=== PATIENT | male | born 1975 | race African-American/Black ===

== ENCOUNTER 2016-08-09 23:49 | Emergency (ER) | payer BC ==
[2016-08-10] MEDS ORDERED: IBUPROFEN 400 MG TAB PO STA (00:11)
[2016-08-10] MEDS ORDERED: ACETAMINOPHEN TAB 500 MG TAB PO STA (00:11)
--- NOTE | 2016-08-10 00:34 | XR ---
EXAM: XR Chest, 2 Views CLINICAL HISTORY: Reason: cough TECHNIQUE: Frontal and lateral views of the chest. COMPARISON: 12/17/15 radiographs. FINDINGS: Lungs: Stable. No consolidation. Pleural space: Unremarkable. No pleural effusion or pneumothorax. Heart: Unremarkable. No cardiomegaly. Mediastinum: Unremarkable. Bones/joints: Mild anterior endplate degenerative changes without compression deformity, stable. IMPRESSION: No new acute intrathoracic abnormality is seen to account for the patient's cough.
[2016-08-10] MEDS ORDERED: AMOXIC-POT CLAV 875MG STARTER 2 EACH TABLET PO STA (00:38)
--- NOTE | 2016-08-10 00:38 | ED ---
Fever HPI - General Chief Complaint: Fever Stated Complaint: fever Time Seen by Provider: 08/10/16 00:06 Source: patient, RN notes reviewed Mode of arrival: ambulatory Limitations: no limitations - History of Present Illness Initial Comments: 41-year-old male presents emergency room chief complaint of cough cold runny nose like symptoms. Patient has had these symptoms for the past 3-4 days. Patient states he was started on amoxicillin for tonsillitis by urgent care and . Patient states she's been taking the medications been using Motrin for fever and continues to have sore throat the cough left ear pain and does not seem to be helping him get better. Patient states now is sick at home. Patient states he has no significant health history. Patient states he is concerned because he continues to have the fever and he Continues does not feel well so he thought that he should be evaluated. Patient denies any recent shortness of breath, chest pain, back pain, abdominal pain, nausea vomiting, numbness or tingling, dysuria or hematuria, constipation or diarrhea, headaches or visual changes, or any other current symptoms. - Related Data Home Medications Medication Instructions Recorded Confirmed Ibuprofen [Motrin] 200 - 600 mg PO Q6H PRN 12/17/15 12/17/15 Previous Rx's Medication Instructions Recorded Albuterol Inhaler [Ventolin Hfa 1 - 2 puff INHALATION Q6HR PRN #1 12/17/15 Inhaler] inhaler Azithromycin [Zithromax Z-pack] 250 mg PO DIRECTED #6 tab 12/17/15 Amoxicillin/Potassium Clav 1 tab PO Q12HR #20 tab 08/10/16 [Augmentin 875-125 Tablet] Allergies Allergy/AdvReac Type Severity Reaction Status Date / Time No Known Allergies Allergy Verified 12/17/15 16:14 Review of Systems ROS Statement: Those systems with pertinent positive or pertinent negative responses have been documented in the HPI. ROS Other: All systems not noted in ROS Statement are negative. Past Medical History Past Medical History: Asthma History of Any Multi-Drug Resistant Organisms: None Reported Past Surgical History: No Surgical Hx Reported Past Psychological History: No Psychological Hx Reported Smoking Status: Current every day smoker Past Alcohol Use History: None Reported Past Drug Use History: Marijuana General Exam - General Exam Comments Initial Comments: General exam: Alert, active, comfortable in no apparent distress Head: Normocephalic Eyes: Normal reaction of pupils, equal size, normal range of extraocular motion Ears: normal external ear canals, pink tympanic membranes with normal cone of light to the right, patient does have erythematous left tympanic membrane Nose: clear with pink turbinates Throat: Erythema with mild exudates with normal sized tonsils Neck: no masses, no nuchal rigidity Chest: no chest wall deformity Lungs: equal air entry with no crackles or wheeze CVS: S1 and S2 normal with no audible mumurs, regular rhythm Abdomen: no hepatosplenomegaly, normal bowel sounds, no guarding or rigidity Spine: no scoliosis or deformity Skin: no rashes Neurological: No focal deficits, tone is normal in all 4 extremities Limitations: no limitations Course Vital Signs 08/09/16 23:55 Temperature 102.1 F H Pulse Rate 98 Respiratory 18 Rate Blood Pressure 130/70 O2 Sat by Pulse 96 Oximetry Medical Decision Making - Medical Decision Making 41-year-old male presents with appears to be a tonsillitis with left otitis media. This time patient is on amoxicillin and does not seem to be improving his symptoms. We discussed could be a virus versus it could need a stronger antibiotic. We will switch him to Augmentin. We did discuss follow-up with a discussed return parameters all his questions. He stated they understood and he is negative and the plan. This time the patient will be discharged home. Disposition Clinical Impression: Acute bacterial tonsillitis, Otitis media of left ear Disposition: HOME SELF-CARE Condition: Stable Instructions: Fever in Adults (ED) Additional Instructions: Please use medication as discussed. Please follow up with family doctor if symptoms have not improved over the next two days. Please return to the emergency room if your symptoms increase or worsen or for any other concerns. Prescriptions: Amoxicillin/Potassium Clav [Augmentin 875-125 Tablet] 1 tab PO Q12HR #20 tab Referrals: Dania Campa MD [Primary Care Provider] - 1-2 days Time of Disposition: 00:39
[2016-08-10 01:03] VITALS: BP 114/60; PULSE 79; RESP 20; TEMP 98.7
== END 2016-08-10 01:15 | disposition home or self-care (01) ==
LOC: EC 23:49
DX: J03.80 Acute tonsillitis due to other specified organisms (principal); B96.89 Other specified bacterial agents as the cause of diseases classified elsewhere; H66.92 Otitis media, unspecified, left ear; F17.200 Nicotine dependence, unspecified, uncomplicated
CPT/HCPCS: 71020; 99283

== ENCOUNTER 2016-09-05 09:39 | Emergency (ER) | payer BC ==
--- NOTE | 2016-09-05 10:12 | ED ---
ENT HPI - General Chief complaint: ENT Stated complaint: sore throat Time Seen by Provider: 09/05/16 09:50 Source: patient, RN notes reviewed Mode of arrival: ambulatory Limitations: no limitations - History of Present Illness Initial comments: 41-year-old male presents to the emergency Department chief complaint of sore throat. Patient states he was diagnosed with strep a few weeks ago he was placed on antibiotics. Patient states that his think that the symptoms and now is getting a sore throat again. Patient denies any fever chills or cough. Patient denies any ear pain. Patient states his throat just continues to hurt so he thought that he should be seen. Patient denies any other symptoms at this time. Patient states he is able to drink with this.Patient denies any recent fever, chills, shortness of breath, chest pain, back pain, abdominal pain, nausea vomiting, numbness or tingling, dysuria or hematuria, constipation or diarrhea, headaches or visual changes, or any other current symptoms. - Related Data Home Medications Medication Instructions Recorded Confirmed No Known Home Medications [No 09/05/16 09/05/16 Known Home Medications] Allergies Allergy/AdvReac Type Severity Reaction Status Date / Time No Known Allergies Allergy Verified 09/05/16 09:41 Review of Systems ROS Statement: Those systems with pertinent positive or pertinent negative responses have been documented in the HPI. ROS Other: All systems not noted in ROS Statement are negative. Past Medical History Past Medical History: Asthma History of Any Multi-Drug Resistant Organisms: None Reported Past Surgical History: No Surgical Hx Reported Past Psychological History: No Psychological Hx Reported Smoking Status: Current every day smoker Past Alcohol Use History: None Reported Past Drug Use History: Marijuana General Exam - General Exam Comments Initial Comments: General exam: Alert, active, comfortable in no apparent distress Head: Normocephalic Eyes: Normal reaction of pupils, equal size, normal range of extraocular motion Ears: normal external ear canals, pink tympanic membranes with normal cone of light Nose: clear with pink turbinates Throat: Mild erythema. No exudates Neck: no masses, no nuchal rigidity Chest: no chest wall deformity Lungs: equal air entry with no crackles or wheeze CVS: S1 and S2 normal with no audible mumurs, regular rhythm Abdomen: no hepatosplenomegaly, normal bowel sounds, no guarding or rigidity Spine: no scoliosis or deformity Skin: no rashes Neurological: No focal deficits, tone is normal in all 4 extremities Limitations: no limitations Course Vital Signs 09/05/16 09:41 Temperature 98.6 F Pulse Rate 83 Respiratory 20 Rate Blood Pressure 144/71 O2 Sat by Pulse 97 Oximetry Medical Decision Making - Medical Decision Making 41-year-old male presents emergency Department chief complaint of pharyngitis. This time patient's strep is negative. We did give him a dose of Decadron. We did discuss close follow-up with his doctor return parameters and all questions. Patient stated that he understood and he is in agreement plan. He will be discharged home. - Lab Data Lab Results 09/05/16 Range/Units 10:10 Group A Strep Rapid Negative (Negative) Disposition Clinical Impression: Acute pharyngitis Disposition: HOME SELF-CARE Condition: Stable Instructions: Pharyngitis (ED) Additional Instructions: Please use medication as discussed. Please follow up with family doctor if symptoms have not improved over the next two days. Please return to the emergency room if your symptoms increase or worsen or for any other concerns. Referrals: Dania Campa MD [Primary Care Provider] - 1-2 days Time of Disposition: 10:58
[2016-09-05] MEDS ORDERED: DEXAMETHASONE 4 MG TAB PO STA (10:57)
[2016-09-05 11:14] VITALS: BP 136/67; PULSE 79; RESP 16; TEMP 98.9
== END 2016-09-05 11:14 | disposition home or self-care (01) ==
LOC: EC 09:39
DX: J02.9 Acute pharyngitis, unspecified (principal); F17.200 Nicotine dependence, unspecified, uncomplicated
CPT/HCPCS: 99283; 87081; 87430; J8540

== ENCOUNTER 2016-11-10 21:41 | Emergency (ER) | payer BC ==
[2016-11-10] MEDS ORDERED: IPRATROPIUM-ALBUTEROL 3 ML NEB INHALATION STA (22:14)
--- NOTE | 2016-11-10 22:42 | ED ---
URI HPI - General Chief Complaint: Upper Respiratory Infection Stated Complaint: Cough/CAMMY Time Seen by Provider: 11/10/16 21:57 Source: patient Mode of arrival: ambulatory Limitations: no limitations - History of Present Illness Initial Comments: This patient is 41-year-old man who presents with the complaint that he has had about a day of cough, congestion, and now some chest tightness. 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 He also smokes about one pack per day. The patient denies fever or chills. He does have some chest tightness but denies chest pain when asked about this. He believes he has been having some wheezing when he breathes. Patient denies diaphoresis, abdominal pain, nausea or vomiting, change in urination or bowel movements, leg pain or swelling. MD Complaint: cough, nasal congestion Onset/Timin -: days(s) Consistency: constant Improves With: nothing Worsens With: nothing Associated Symptoms: nasal congestion, cough Treatments Prior to Arrival: none - Related Data Previous Rx's Medication Instructions Recorded Albuterol Inhaler [Ventolin Hfa 1 - 2 puff INHALATION Q6HR PRN #1 11/10/16 Inhaler] inhaler predniSONE 60 mg PO DAILY #30 tab 11/10/16 Allergies Allergy/AdvReac Type Severity Reaction Status Date / Time No Known Allergies Allergy Verified 11/10/16 22:02 Review of Systems ROS Statement: Those systems with pertinent positive or pertinent negative responses have been documented in the HPI. ROS Other: All systems not noted in ROS Statement are negative. Constitutional: Denies: fever, chills, weakness ENT: Reports: congestion Respiratory: Reports: cough, wheezes Cardiovascular: Denies: chest pain, palpitations, orthopnea, edema Gastrointestinal: Denies: abdominal pain, vomiting, diarrhea Genitourinary: Denies: hematuria Musculoskeletal: Denies: back pain Past Medical History Past Medical History: Asthma History of Any Multi-Drug Resistant Organisms: None Reported Past Surgical History: No Surgical Hx Reported Past Psychological History: No Psychological Hx Reported Smoking Status: Current every day smoker Past Alcohol Use History: None Reported Past Drug Use History: Marijuana General Exam Limitations: no limitations General appearance: alert, in no apparent distress, obese Head exam: Present: atraumatic, normocephalic Respiratory exam: Present: wheezes. Absent: respiratory distress, rales, rhonchi, stridor, accessory muscle use, decreased breath sounds, prolonged expiratory Cardiovascular Exam: Present: regular rate, normal rhythm, normal heart sounds. Absent: systolic murmur, diastolic murmur, rubs, gallop Extremities exam: Present: normal inspection, normal capillary refill. Absent: pedal edema, calf tenderness Skin exam: Present: warm, dry, intact, normal color. Absent: rash Course Vital Signs 11/10/16 11/10/16 11/10/16 21:47 22:17 22:23 Temperature 98.2 F Pulse Rate 100 98 Respiratory 20 Rate Blood Pressure 138/77 O2 Sat by Pulse 98 100 Oximetry 11/10/16 22:28 Temperature Pulse Rate 98 Respiratory Rate Blood Pressure O2 Sat by Pulse Oximetry Disposition Clinical Impression: Bronchitis Disposition: HOME SELF-CARE Condition: Good Instructions: Acute Bronchitis (ED) Prescriptions: Albuterol Inhaler [Ventolin Hfa Inhaler] 1 - 2 puff INHALATION Q6HR PRN #1 inhaler PRN Reason: Wheezing predniSONE 60 mg PO DAILY #30 tab Referrals: Dania Campa MD [Primary Care Provider] - 1-2 days
[2016-11-10] MEDS ORDERED: predniSONE 20 MG TAB PO STA (23:48)
--- NOTE | 2016-11-10 23:50 | XR ---
EXAM: XR Chest, 2 Views CLINICAL HISTORY: Reason: cough TECHNIQUE: Frontal and lateral views of the chest. COMPARISON: 08/10/2016. FINDINGS: Lungs: Bibasilar atelectatic changes and/or infiltrates, slightly more conspicuous on this study than the prior. Mild peribronchial cuffing is suggested, slightly more conspicuous on this study than the prior. Finding may represent mild pulmonary edema versus small airways inflammatory disease. Pleural space: Unremarkable. No pneumothorax. Heart: Unremarkable. No cardiomegaly. Mediastinum: Unremarkable. Bones/joints: Unchanged osseous structures. IMPRESSION: 1. Bibasilar atelectatic changes and/or infiltrates, slightly more conspicuous on this study than the prior. 2. Mild peribronchial cuffing is suggested, slightly more conspicuous on this study than the prior. Finding may represent mild pulmonary edema versus small airways inflammatory disease.
[2016-11-11] VITALS: RESP 18
[2016-11-11 00:19] VITALS: BP 121/68; PULSE 80; TEMP 97.8
== END 2016-11-11 00:19 | disposition home or self-care (01) ==
LOC: EC 21:41
DX: J40 Bronchitis, not specified as acute or chronic (principal); R09.81 Nasal congestion; E66.9 Obesity, unspecified; F17.200 Nicotine dependence, unspecified, uncomplicated; Z68.41 Body mass index [BMI] 40.0-44.9, adult
CPT/HCPCS: 99283; 94640; 71020; J7512

== ENCOUNTER 2020-08-26 15:04 | Emergency (ER) | payer BC ==
[2020-08-26 15:28] VITALS: RESP 18
[2020-08-26] MEDS ORDERED: predniSONE 20 MG TAB PO STA (17:10)
[2020-08-26] MEDS ORDERED: SODIUM CHLORIDE 0.9% 500 ML 500 ML IV STA (17:10)
[2020-08-26] MEDS ORDERED: IPRATROPIUM-ALBUTEROL 3 ML NEB INHALATION STA (17:10)
--- NOTE | 2020-08-26 17:16 | ED ---
SOB HPI - General Chief Complaint: Shortness of Breath Stated Complaint: SOB, cough Source: patient, RN notes reviewed, old records reviewed Mode of arrival: ambulatory Limitations: no limitations - History of Present Illness Initial Comments: 45-year-old obese black male, alert and oriented 4, presents to the emergency room with 3 weeks of intermittent cough and shortness of breath with chest tightness. Patient states he was seen at [facility] 3 weeks ago and given a Z-Jimmy had chest x-ray and EKG done that was all normal. Patient states that he does have a history of asthma but does not take any medication. Patient is a pack-a-day smoker. He denies any patient's on a daily basis no surgical history. Patient states that he does take Adderall to help him at work but it is not prescribed to him. Patient denies any fevers. There is no family history of sudden cardiac or heart disease at an early age. There is no diabetes in the family. Patient denies fevers states that he has been wheezing and did get relief after the Z-Jimmy but then the shortness of breath came back. Patient's primary care doctor is Dr. Treviño however he is looking for a new [facility] care doctor. MD Complaint: shortness of breath, cough, chest pain -: week(s) (3) Quality: other (Tightness) Consistency: intermittent Improves With: nothing Worsens With: coughing Known History Of: other (Bronchitis) Associated Symptoms: cough Treatments Prior to Arrival: none - Related Data Home Oxygen Therapy: No Previous Rx's Medication Instructions Recorded Albuterol Inhaler (Mhu) [Ventolin 1 - 2 puff INHALATION Q6HR PRN #1 11/10/16 Hfa Inhaler (Mhu)] inhaler predniSONE 60 mg PO DAILY #30 tab 11/10/16 Albuterol Inhaler [Ventolin Hfa 2 puff INHALATION ONCE PRN 30 Days 08/26/20 Inhaler] #1 puff Albuterol Nebulized [Ventolin 2.5 mg INHALATION Q4H PRN #25 nebu 08/26/20 Nebulized] predniSONE 50 mg PO DAILY #5 tab 08/26/20 Allergies Allergy/AdvReac Type Severity Reaction Status Date / Time No Known Allergies Allergy Verified 08/26/20 15:28 Review of Systems ROS Statement: Those systems with pertinent positive or pertinent negative responses have been documented in the HPI. ROS Other: All systems not noted in ROS Statement are negative. Past Medical History Past Medical History: Asthma History of Any Multi-Drug Resistant Organisms: None Reported Past Surgical History: No Surgical Hx Reported Past Psychological History: No Psychological Hx Reported Smoking Status: Current every day smoker Past Alcohol Use History: None Reported Past Drug Use History: Marijuana General Exam Limitations: no limitations General appearance: alert, in no apparent distress Head exam: Present: atraumatic, normocephalic, normal inspection Eye exam: Present: normal appearance, PERRL, EOMI. Absent: scleral icterus, conjunctival injection, periorbital swelling Pupils: Present: normal accommodation ENT exam: Present: normal exam, normal oropharynx, mucous membranes moist Neck exam: Present: normal inspection, full ROM. Absent: tenderness, meningismus, lymphadenopathy Respiratory exam: Present: wheezes. Absent: rhonchi, stridor, chest wall tenderness, accessory muscle use, decreased breath sounds Cardiovascular Exam: Present: regular rate, normal rhythm, normal heart sounds. Absent: systolic murmur, diastolic murmur, rubs, gallop, clicks GI/Abdominal exam: Present: soft, normal bowel sounds. Absent: distended, tenderness, guarding, rebound, rigid Extremities exam: Present: normal inspection, full ROM, normal capillary refill. Absent: tenderness, pedal edema, joint swelling, calf tenderness Back exam: Present: normal inspection, full ROM. Absent: tenderness, CVA tenderness (R), CVA tenderness (L), muscle spasm, paraspinal tenderness, vertebral tenderness Neurological exam: Present: alert, oriented X3, CN II-XII intact, normal gait Psychiatric exam: Present: normal affect, normal mood Skin exam: Present: warm, dry, intact, normal color. Absent: rash Course Vital Signs 08/26/20 08/26/20 08/26/20 15:24 17:43 17:45 Temperature 98.0 F Pulse Rate 79 84 Pulse Rate [ 81 Occupational Therapy Technician ] Respiratory 18 18 20 Rate Blood Pressure 166/96 O2 Sat by Pulse 98 Oximetry 08/26/20 17:50 Temperature Pulse Rate 85 Pulse Rate [ Occupational Therapy Technician ] Respiratory 18 Rate Blood Pressure O2 Sat by Pulse Oximetry Medical Decision Making - Medical Decision Making Heart score 1. EKG with no signs of ST elevation. Chest x-ray is negative for acute cardiopulmonary process. Troponin is negative at 0.012, there is no leukocytosis and hemoglobin and hematocrit is stable at 14 and 44 respectively. Patient will be prescribed prednisone for his asthma and an albuterol inhaler. Directed to follow up with his primary care doctor in 1 week, return to the emergency room with worsening symptoms chest pain or fevers. Case discussed with Dr. Espinal who is agreeable to this plan of care - Lab Data Result diagrams: 08/26/20 17:31 08/26/20 17:31 Lab Results 08/26/20 08/26/20 08/26/20 Range/Units 17:31 17:31 17:31 WBC 5.7 (3.8-10.6) k/uL RBC 5.03 (4.30-5.90) m/uL Hgb 14.4 (13.0-17.5) gm/dL Hct 44.4 (39.0-53.0) % MCV 88.3 (80.0-100.0) fL MCH 28.6 (25.0-35.0) pg MCHC 32.4 (31.0-37.0) g/dL RDW 14.6 (11.5-15.5) % Plt Count 265 (150-450) k/uL MPV 6.7 Neutrophils % 58 % Lymphocytes % 27 % Monocytes % 5 % Eosinophils % 8 % Basophils % 1 % Neutrophils # 3.3 (1.3-7.7) k/uL Lymphocytes # 1.5 (1.0-4.8) k/uL Monocytes # 0.3 (0-1.0) k/uL Eosinophils # 0.4 (0-0.7) k/uL Basophils # 0.0 (0-0.2) k/uL PT 9.5 (9.0-12.0) sec INR 0.9 (<1.2) APTT 23.4 (22.0-30.0) sec Sodium 142 (137-145) mmol/L Potassium 4.5 (3.5-5.1) mmol/L Chloride 109 H (98-107) mmol/L Carbon Dioxide 28 (22-30) mmol/L Anion Gap 5 mmol/L BUN 16 (9-20) mg/dL Creatinine 0.73 (0.66-1.25) mg/dL Est GFR (CKD-EPI)AfAm >90 (>60 ml/min/1.73 sqM) Est GFR (CKD-EPI)NonAf >90 (>60 ml/min/1.73 sqM) Glucose 87 (74-99) mg/dL Calcium 9.1 (8.4-10.2) mg/dL Magnesium 2.1 (1.6-2.3) mg/dL Total Bilirubin 0.5 (0.2-1.3) mg/dL AST 37 (17-59) U/L ALT 40 (4-49) U/L Alkaline Phosphatase 80 (38-126) U/L Troponin I (0.000-0.034) ng/mL Total Protein 7.0 (6.3-8.2) g/dL Albumin 4.0 (3.5-5.0) g/dL 08/26/20 Range/Units 17:31 WBC (3.8-10.6) k/uL RBC (4.30-5.90) m/uL Hgb (13.0-17.5) gm/dL Hct (39.0-53.0) % MCV (80.0-100.0) fL MCH (25.0-35.0) pg MCHC (31.0-37.0) g/dL RDW (11.5-15.5) % Plt Count (150-450) k/uL MPV Neutrophils % % Lymphocytes % % Monocytes % % Eosinophils % % Basophils % % Neutrophils # (1.3-7.7) k/uL Lymphocytes # (1.0-4.8) k/uL Monocytes # (0-1.0) k/uL Eosinophils # (0-0.7) k/uL Basophils # (0-0.2) k/uL PT (9.0-12.0) sec INR (<1.2) APTT (22.0-30.0) sec Sodium (137-145) mmol/L Potassium (3.5-5.1) mmol/L Chloride (98-107) mmol/L Carbon Dioxide (22-30) mmol/L Anion Gap mmol/L BUN (9-20) mg/dL Creatinine (0.66-1.25) mg/dL Est GFR (CKD-EPI)AfAm (>60 ml/min/1.73 sqM) Est GFR (CKD-EPI)NonAf (>60 ml/min/1.73 sqM) Glucose (74-99) mg/dL Calcium (8.4-10.2) mg/dL Magnesium (1.6-2.3) mg/dL Total Bilirubin (0.2-1.3) mg/dL AST (17-59) U/L ALT (4-49) U/L Alkaline Phosphatase (38-126) U/L Troponin I <0.012 (0.000-0.034) ng/mL Total Protein (6.3-8.2) g/dL Albumin (3.5-5.0) g/dL - EKG Data EKG shows normal: sinus rhythm, intervals (Ventricular rate of 74, IN interval 0.118, QRS of 0.88, QTC of 0.419) EKG Comments: No old EKG for comparison. Disposition Clinical Impression: Asthma attack Disposition: HOME SELF-CARE Condition: Good Instructions (If sedation given, give patient instructions): Asthma (ED) Additional Instructions: Take medication as prescribed, uvula injure albuterol inhaler every 4 hours as needed. Follow-up with Dr. Glass for a primary care physician and Dr. Santoro a route clerk to manage asthma. Return to the emergency room with incr easing shortness of breath or chest pain. Stop smoking. Prescriptions: predniSONE 50 mg PO DAILY #5 tab Albuterol Inhaler [Ventolin Hfa Inhaler] 2 puff INHALATION ONCE PRN 30 Days #1 puff PRN Reason: Wheezing Albuterol Nebulized [Ventolin Nebulized] 2.5 mg INHALATION Q4H PRN #25 nebu PRN Reason: difficulty in breathing Is patient prescribed a controlled substance at d/c from ED?: No Referrals: Dania Campa MD [Primary Care Provider] - 1-2 days Chino Glass MD [STAFF PHYSICIAN] - 1-2 days Glen Santoro MD [STAFF PHYSICIAN] - 1-2 days Time of Disposition: 18:55
[2020-08-26 17:54] LABS: Basophils % (A) 1 %; Eosinophils # (A) 0.4 k/uL (0-0.7); Eosinophils % (A) 8 %; HCT 44.4 % (39.0-53.0); HGB 14.4 gm/dL (13.0-17.5); Lymphocytes # (A) 1.5 k/uL (1.0-4.8); Lymphocytes % (A) 27 %; MCH 28.6 pg (25.0-35.0); MCHC 32.4 g/dL (31.0-37.0); MCV 88.3 fL (80.0-100.0); Mean Platelet Volume 6.7; Monocytes # (A) 0.3 k/uL (0-1.0); Monocytes % (A) 5 %; Neutrophils # (A) 3.3 k/uL (1.3-7.7); Neutrophils % (A) 58 %; Platelet Count 265 k/uL (150-450); RBC 5.03 m/uL (4.30-5.90); RDW 14.6 % (11.5-15.5); WBC 5.7 k/uL (3.8-10.6)
[2020-08-26 18:03] LABS: INR 0.9 (<1.2); Partial Thromboplastin Time 23.4 sec (22.0-30.0); Prothrombin Time 9.5 sec (9.0-12.0)
[2020-08-26 18:15] LABS: ALT 40 U/L (4-49); AST 37 U/L (17-59); African American GFR (CKD) >90 (>60 ml/min/1.73 sqM); Alkaline Phosphatase 80 U/L (38-126); Anion Gap 5 mmol/L; Blood Urea Nitrogen 16 mg/dL (9-20); Calcium 9.1 mg/dL (8.4-10.2); Carbon Dioxide 28 mmol/L (22-30); Chloride 109 mmol/L (98-107); Glucose 87 mg/dL (74-99); Magnesium 2.1 mg/dL (1.6-2.3); Non-African American GFR(CKD) >90 (>60 ml/min/1.73 sqM); Potassium 4.5 mmol/L (3.5-5.1); Sodium 142 mmol/L (137-145); Total Bilirubin 0.5 mg/dL (0.2-1.3)
--- NOTE | 2020-08-26 18:19 | XR ---
EXAMINATION TYPE: XR chest 2V DATE OF EXAM: 08/26/2020 COMPARISON: 11/10/2016 HISTORY: Short of breath TECHNIQUE: FINDINGS: Heart and mediastinum are normal. Lungs are clear. Diaphragm is normal. Bony thorax appears normal. IMPRESSION: Normal chest. No change.
[2020-08-26 19:19] VITALS: BP 158/89; PULSE 72; TEMP 98.7
== END 2020-08-26 19:17 | disposition home or self-care (01) ==
LOC: EC 15:04
DX: J45.901 Unspecified asthma with (acute) exacerbation (principal); F12.90 Cannabis use, unspecified, uncomplicated; F17.210 Nicotine dependence, cigarettes, uncomplicated; Z79.51 Long term (current) use of inhaled steroids
CPT/HCPCS: 36415; 94640; 93005; 80053; 83735; 84484; 85025; 85610; 85730; 71046; 99285; J7512

== ENCOUNTER 2020-10-30 18:38 | Emergency (ER) | payer BC ==
[2020-10-30] MEDS ORDERED: KETOROLAC 15 MG/ML 1 ML VIAL IM STA (19:26)
[2020-10-30] MEDS ORDERED: predniSONE 50 MG TAB PO STA (19:26)
--- NOTE | 2020-10-30 19:28 | ED ---
Back Pain HPI - General Chief Complaint: Back Pain/Injury Stated Complaint: Back Pain Time Seen by Provider: 10/30/20 19:16 Source: patient Limitations: no limitations - History of Present Illness Initial Comments: Is a 45-year-old male with a long-standing history of left-sided sciatic nerve pain. The patient states he started a new job today and he states that his sciatica started flaring up on him. He states he has pain in his left lower back that radiates down the back of his leg area states he has a little bit [place] sensation however no numbness. Denies any weakness in the leg. Denies any bowel or bladder incontinence. No saddle anesthesia. States that it feels similar to his had flareups in the past and is requesting steroids and pain control. He states he follows with Dr. Treviño regarding his pain typically and gets [place] 53 25's. The patient otherwise denies any injuries. No other complaints. - Related Data Previous Rx's Medication Instructions Recorded Albuterol Inhaler (Mhu) [Ventolin 1 - 2 puff INHALATION Q6HR PRN #1 11/10/16 Hfa Inhaler (Mhu)] inhaler predniSONE 60 mg PO DAILY #30 tab 11/10/16 Albuterol Inhaler [Ventolin Hfa 2 puff INHALATION ONCE PRN 30 Days 08/26/20 Inhaler] #1 puff Albuterol Nebulized [Ventolin 2.5 mg INHALATION Q4H PRN #25 nebu 08/26/20 Nebulized] predniSONE 50 mg PO DAILY #5 tab 08/26/20 HYDROcodone/APAP 5-325MG [[place] 1 tab PO Q6HR PRN 3 Days #6 tab 10/30/20 5-325] predniSONE 50 mg PO DAILY #4 tab 10/30/20 Allergies Allergy/AdvReac Type Severity Reaction Status Date / Time No Known Allergies Allergy Verified 10/30/20 19:14 Review of Systems ROS Statement: Those systems with pertinent positive or pertinent negative responses have been documented in the HPI. ROS Other: All systems not noted in ROS Statement are negative. Past Medical History Past Medical History: Asthma History of Any Multi-Drug Resistant Organisms: None Reported Past Surgical History: No Surgical Hx Reported Past Psychological History: No Psychological Hx Reported Smoking Status: Current every day smoker Past Alcohol Use History: None Reported Past Drug Use History: Marijuana General Exam - General Exam Comments Initial Comments: Constitutional: Awake alert Appears comfortable Head: Normocephalic atraumatic Eyes: no conjunctival injection No scleral icterus EOMI Neck: No JVD Supple Heart: Regular rate rhythm normal S1-S2 no murmurs Lungs: Clear to auscultation bilaterally No wheezing No rales Abdomen: Soft nondistended nontender Extremities: Non edematous DP pulses intact Radial pulses intact, tenderness to palpation the left paraspinal lumbar musculature Neuro: A&Ox3, 5 out of 5 strength with hip flexion bilaterally, knee flexion and extension, plantar flexion and dorsiflexion, 2 out of 4 patellar reflexes, sensation intact to light touch in bilateral lower [place] No focal neurologic deficits Psych: Appropriate mood and affect Limitations: no limitations Course Vital Signs 10/30/20 19:12 Temperature 98.1 F Pulse Rate 91 Respiratory 16 Rate Blood Pressure 112/68 O2 Sat by Pulse 96 Oximetry Medical Decision Making - Medical Decision Making Is a 45-year-old male presents emergency department for sciatic nerve pain. The patient did not have any red flag symptoms on examination. No focal neurologic findings. His symptoms were consistent with his history of sciatica in the past. The patient was requesting pain control. Given Toradol and a dose of prednisone in the emergency department. He can be sent home with prednisone for 4 more days and also I gave him 6 [place] for breakthrough pain. The patient states that he has not tolerated muscle relaxers in the past and states that she has been trying to take ibuprofen at home without much relief area told that he can return if he developed any weakness, numbness, [place], or any other worsening symptoms. The patient was also given a work note for today and follow up with Dr. Treviño as well. All questions answered. Disposition Clinical Impression: Sciatica Disposition: HOME SELF-CARE Condition: Stable Instructions (If sedation given, give patient instructions): Acute Low Back Pain (ED) Prescriptions: HYDROcodone/APAP 5-325MG [[place] 5-325] 1 tab PO Q6HR PRN 3 Days #6 tab PRN Reason: Pain predniSONE 50 mg PO DAILY #4 tab Is patient prescribed a controlled substance at d/c from ED?: Yes When asked, does pt state using other controlled substances?: No If prescribed controlled substance>3 days was MAPS reviewed?: Prescribed <3 Days If opioid is for acute pain is fill amount 7 days or less?: Yes If Rx opioid, was Start Talking consent form obtained?: Yes Referrals: Domenic Treviño MD [Primary Care Provider] - 1-2 days
[2020-10-30 19:50] VITALS: BP 142/86; PULSE 18; RESP 86; TEMP 97.6
== END 2020-10-30 19:45 | disposition home or self-care (01) ==
LOC: EC 18:38
DX: M54.42 Lumbago with sciatica, left side (principal); J45.909 Unspecified asthma, uncomplicated; F17.200 Nicotine dependence, unspecified, uncomplicated; F12.90 Cannabis use, unspecified, uncomplicated; Z79.52 Long term (current) use of systemic steroids; Z79.51 Long term (current) use of inhaled steroids
CPT/HCPCS: 96372; 99283; J1885; J7512

== ENCOUNTER 2020-12-13 07:26 | Emergency (ER) | payer BC, OTHER ==
[2020-12-13] MEDS ORDERED: IPRATROPIUM-ALBUTEROL 3 ML NEB INHALATION STA (07:43)
[2020-12-13] MEDS ORDERED: methylPREDNISolone SOD SUCCI 125 MG/2 ML VIAL IV STA (07:43)
[2020-12-13] MEDS ORDERED: SODIUM CHLORIDE 0.9% 500 ML 500 ML IV STA (07:43)
[2020-12-13 08:14] LABS: Basophils % (A) 1 %; Eosinophils # (A) 0.6 k/uL (0-0.7); Eosinophils % (A) 9 %; HCT 44.4 % (39.0-53.0); HGB 14.4 gm/dL (13.0-17.5); Lymphocytes % (A) 16 %; MCH 29.1 pg (25.0-35.0); MCHC 32.5 g/dL (31.0-37.0); MCV 89.5 fL (80.0-100.0); Mean Platelet Volume 6.8; Monocytes # (A) 0.4 k/uL (0-1.0); Monocytes % (A) 7 %; Neutrophils # (A) 4.1 k/uL (1.3-7.7); Neutrophils % (A) 66 %; Platelet Count 280 k/uL (150-450); RBC 4.96 m/uL (4.30-5.90); RDW 13.3 % (11.5-15.5); WBC 6.2 k/uL (3.8-10.6)
[2020-12-13 08:20] VITALS: RESP 18
[2020-12-13 08:22] LABS: INR 0.9 (<1.2); Partial Thromboplastin Time 23.8 sec (22.0-30.0); Prothrombin Time 9.6 sec (9.0-12.0)
[2020-12-13 08:23] LABS: ALT 38 U/L (4-49); AST 35 U/L (17-59); African American GFR (CKD) >90 (>60 ml/min/1.73 sqM); Albumin 3.8 g/dL (3.5-5.0); Alkaline Phosphatase 83 U/L (38-126); Anion Gap 8 mmol/L; Blood Urea Nitrogen 16 mg/dL (9-20); Calcium 8.8 mg/dL (8.4-10.2); Carbon Dioxide 23 mmol/L (22-30); Chloride 107 mmol/L (98-107); Glucose 106 mg/dL (74-99); Non-African American GFR(CKD) 81 (>60 ml/min/1.73 sqM); Potassium 3.9 mmol/L (3.5-5.1); Sodium 138 mmol/L (137-145); Total Bilirubin 0.5 mg/dL (0.2-1.3); Total Protein 6.8 g/dL (6.3-8.2)
--- NOTE | 2020-12-13 08:30 | XR ---
EXAMINATION TYPE: XR chest 2V DATE OF EXAM: 12/13/2020 COMPARISON: NONE TECHNIQUE: PA and lateral views submitted. HISTORY: Cough FINDINGS: The lungs are clear and there is no pneumothorax, pleural effusion, or focal pneumonia. Heart size normal. No overt failure. Hypertrophic and degenerative changes of the spine. IMPRESSION: 1. No acute process.
--- NOTE | 2020-12-13 09:16 | ED ---
SOB HPI - General Chief Complaint: Shortness of Breath Stated Complaint: CAMMY Time Seen by Provider: 12/13/20 07:31 Source: patient, RN notes reviewed Mode of arrival: ambulatory Limitations: no limitations - History of Present Illness Initial Comments: This a 45-year-old male presents emergency Department with chief complaint of shortness of breath. Patient states that he was recently diagnosed with asthma states that been having increasing shortness of urinating. No fevers chills no chest pain states he only has an inhaler at home tried this a few times. Patient has mild nasal congestion no headache no dizziness no abdominal pain. - Related Data Previous Rx's Medication Instructions Recorded Albuterol Inhaler (Mhu) [Ventolin 1 - 2 puff INHALATION Q6HR PRN #1 11/10/16 Hfa Inhaler (Mhu)] inhaler predniSONE 60 mg PO DAILY #30 tab 11/10/16 Albuterol Inhaler [Ventolin Hfa 2 puff INHALATION ONCE PRN 30 Days 08/26/20 Inhaler] #1 puff Albuterol Nebulized [Ventolin 2.5 mg INHALATION Q4H PRN #25 nebu 08/26/20 Nebulized] predniSONE 50 mg PO DAILY #5 tab 08/26/20 HYDROcodone/APAP 5-325MG [[place] 1 tab PO Q6HR PRN 3 Days #6 tab 10/30/20 5-325] predniSONE 50 mg PO DAILY #4 tab 10/30/20 predniSONE 50 mg PO DAILY #5 tab 12/13/20 Allergies Allergy/AdvReac Type Severity Reaction Status Date / Time No Known Allergies Allergy Verified 12/13/20 07:29 Review of Systems ROS Statement: Those systems with pertinent positive or pertinent negative responses have been documented in the HPI. ROS Other: All systems not noted in ROS Statement are negative. Past Medical History Past Medical History: Asthma History of Any Multi-Drug Resistant Organisms: None Reported Past Surgical History: No Surgical Hx Reported Past Psychological History: No Psychological Hx Reported Smoking Status: Current every day smoker Past Alcohol Use History: None Reported Past Drug Use History: Marijuana General Exam Limitations: no limitations General appearance: alert, in no apparent distress Head exam: Present: atraumatic, normocephalic, normal inspection Eye exam: Present: normal appearance, PERRL, EOMI. Absent: scleral icterus, conjunctival injection, periorbital swelling ENT exam: Present: normal exam, normal oropharynx, mucous membranes moist Neck exam: Present: normal inspection, full ROM. Absent: tenderness, meningismus, lymphadenopathy Respiratory exam: Present: wheezes. Absent: normal lung sounds bilaterally, respiratory distress, rales, rhonchi, stridor Cardiovascular Exam: Present: regular rate, normal rhythm, normal heart sounds. Absent: systolic murmur, diastolic murmur, rubs, gallop, clicks Course Vital Signs 12/13/20 12/13/20 12/13/20 07:27 08:18 08:30 Temperature 98.5 F Pulse Rate 94 86 94 Respiratory 24 18 18 Rate Blood Pressure 148/79 O2 Sat by Pulse 95 Oximetry Medical Decision Making - Medical Decision Making X-rays negative, COVID-19 his negative labs unremarkable. Patient did have diffuse wheezing improved after albuterol treatment. Patient be discharged in stable condition return parameters were discussed. - Lab Data Result diagrams: 12/13/20 07:53 12/13/20 07:53 Lab Results 12/13/20 12/13/20 12/13/20 Range/Units 07:53 07:53 07:53 WBC 6.2 (3.8-10.6) k/uL RBC 4.96 (4.30-5.90) m/uL Hgb 14.4 (13.0-17.5) gm/dL Hct 44.4 (39.0-53.0) % MCV 89.5 (80.0-100.0) fL MCH 29.1 (25.0-35.0) pg MCHC 32.5 (31.0-37.0) g/dL RDW 13.3 (11.5-15.5) % Plt Count 280 (150-450) k/uL MPV 6.8 Neutrophils % 66 % Lymphocytes % 16 % Monocytes % 7 % Eosinophils % 9 % Basophils % 1 % Neutrophils # 4.1 (1.3-7.7) k/uL Lymphocytes # 1.0 (1.0-4.8) k/uL Monocytes # 0.4 (0-1.0) k/uL Eosinophils # 0.6 (0-0.7) k/uL Basophils # 0.0 (0-0.2) k/uL PT 9.6 (9.0-12.0) sec INR 0.9 (<1.2) APTT 23.8 (22.0-30.0) sec Sodium 138 (137-145) mmol/L Potassium 3.9 (3.5-5.1) mmol/L Chloride 107 (98-107) mmol/L Carbon Dioxide 23 (22-30) mmol/L Anion Gap 8 mmol/L BUN 16 (9-20) mg/dL Creatinine 1.10 (0.66-1.25) mg/dL Est GFR (CKD-EPI)AfAm >90 (>60 ml/min/1.73 sqM) Est GFR (CKD-EPI)NonAf 81 (>60 ml/min/1.73 sqM) Glucose 106 H (74-99) mg/dL Calcium 8.8 (8.4-10.2) mg/dL Total Bilirubin 0.5 (0.2-1.3) mg/dL AST 35 (17-59) U/L ALT 38 (4-49) U/L Alkaline Phosphatase 83 (38-126) U/L NT-Pro-B Natriuret Pep pg/mL Total Protein 6.8 (6.3-8.2) g/dL Albumin 3.8 (3.5-5.0) g/dL Coronavirus (PCR) (Not Detectd) 12/13/20 12/13/20 Range/Units 07:53 07:53 WBC (3.8-10.6) k/uL RBC (4.30-5.90) m/uL Hgb (13.0-17.5) gm/dL Hct (39.0-53.0) % MCV (80.0-100.0) fL MCH (25.0-35.0) pg MCHC (31.0-37.0) g/dL RDW (11.5-15.5) % Plt Count (150-450) k/uL MPV Neutrophils % % Lymphocytes % % Monocytes % % Eosinophils % % Basophils % % Neutrophils # (1.3-7.7) k/uL Lymphocytes # (1.0-4.8) k/uL Monocytes # (0-1.0) k/uL Eosinophils # (0-0.7) k/uL Basophils # (0-0.2) k/uL PT (9.0-12.0) sec INR (<1.2) APTT (22.0-30.0) sec Sodium (137-145) mmol/L Potassium (3.5-5.1) mmol/L Chloride (98-107) mmol/L Carbon Dioxide (22-30) mmol/L Anion Gap mmol/L BUN (9-20) mg/dL Creatinine (0.66-1.25) mg/dL Est GFR (CKD-EPI)AfAm (>60 ml/min/1.73 sqM) Est GFR (CKD-EPI)NonAf (>60 ml/min/1.73 sqM) Glucose (74-99) mg/dL Calcium (8.4-10.2) mg/dL Total Bilirubin (0.2-1.3) mg/dL AST (17-59) U/L ALT (4-49) U/L Alkaline Phosphatase (38-126) U/L NT-Pro-B Natriuret Pep 22 pg/mL Total Protein (6.3-8.2) g/dL Albumin (3.5-5.0) g/dL Coronavirus (PCR) Not Detected (Not Detectd) Disposition Clinical Impression: Asthma exacerbation Disposition: HOME SELF-CARE Condition: Stable Instructions (If sedation given, give patient instructions): Asthma (ED) Additional Instructions: Please return to the Emergency Department if symptoms worsen or any other concerns. Prescriptions: predniSONE 50 mg PO DAILY #5 tab Is patient prescribed a controlled substance at d/c from ED?: No Referrals: Domenic Treviño MD [Primary Care Provider] - 1-2 days Time of Disposition: 09:15
[2020-12-13 09:52] VITALS: BP 124/92; PULSE 86; TEMP 98.6
== END 2020-12-13 09:52 | disposition home or self-care (01) ==
LOC: EC 07:26
DX: J45.901 Unspecified asthma with (acute) exacerbation (principal); F17.200 Nicotine dependence, unspecified, uncomplicated; F12.90 Cannabis use, unspecified, uncomplicated; Z20.822 Contact with and (suspected) exposure to COVID-19
CPT/HCPCS: 99285; 96374; 96361; 36415; 94640; 93005; 83880; 80053; 84484; 85025; 85610; 85730; 87635; 71046; J2930

== ENCOUNTER 2021-07-30 10:09 | Emergency (ER) | payer OTHER ==
[2021-07-30] MEDS ORDERED: IPRATROPIUM-ALBUTEROL 3 ML NEB INHALATION STA (10:43)
--- NOTE | 2021-07-30 11:21 | XR ---
EXAMINATION TYPE: XR chest 2V DATE OF EXAM: 07/30/2021 COMPARISON: 12/13/2020 INDICATION: Cough TECHNIQUE: Frontal and lateral views of the chest are obtained. FINDINGS: The heart size is normal. The pulmonary vasculature is normal. The lungs are clear. IMPRESSION: 1. No acute pulmonary process.
[2021-07-30 11:31] VITALS: RESP 20
--- NOTE | 2021-07-30 11:34 | ED ---
Chest Pain HPI - General Chief Complaint: Chest Pain Stated Complaint: Chest pain Time Seen by Provider: 07/30/21 10:23 Source: patient, RN notes reviewed Mode of arrival: ambulatory Limitations: no limitations - History of Present Illness Initial Comments: 46-year-old male presents emergency Department with chief complaint of asthma issues. He is out of his inhaler patient states that he is a daily smoker has been told that he has early stage of COPD. Patient had no fevers chills nonproductive cough. He just noticed some wheezing states he always has issues to 71 year with weather changes. Patient offers no complaints. - Related Data Previous Rx's Medication Instructions Recorded Albuterol Inhaler (Mhu) [Ventolin 1 - 2 puff INHALATION Q6HR PRN #1 11/10/16 Hfa Inhaler (Mhu)] inhaler predniSONE 60 mg PO DAILY #30 tab 11/10/16 Albuterol Inhaler [Ventolin Hfa 2 puff INHALATION ONCE PRN 30 Days 08/26/20 Inhaler] #1 puff Albuterol Nebulized [Ventolin 2.5 mg INHALATION Q4H PRN #25 nebu 08/26/20 Nebulized] predniSONE 50 mg PO DAILY #5 tab 08/26/20 HYDROcodone/APAP 5-325MG [[place] 1 tab PO Q6HR PRN 3 Days #6 tab 10/30/20 5-325] predniSONE 50 mg PO DAILY #4 tab 10/30/20 predniSONE 50 mg PO DAILY #5 tab 12/13/20 Albuterol Sulfate [Proair Hfa] 1 - 2 puff INHALATION Q4HR PRN 07/30/21 #8.5 gm predniSONE 50 mg PO DAILY #5 tab 07/30/21 Allergies Allergy/AdvReac Type Severity Reaction Status Date / Time No Known Allergies Allergy Verified 07/30/21 10:18 Review of Systems ROS Statement: Those systems with pertinent positive or pertinent negative responses have been documented in the HPI. ROS Other: All systems not noted in ROS Statement are negative. Past Medical History Past Medical History: Asthma History of Any Multi-Drug Resistant Organisms: None Reported Past Surgical History: No Surgical Hx Reported Past Psychological History: No Psychological Hx Reported Smoking Status: Current every day smoker Past Alcohol Use History: None Reported Past Drug Use History: Marijuana General Exam Limitations: no limitations General appearance: alert, in no apparent distress Head exam: Present: atraumatic, normocephalic, normal inspection Eye exam: Present: normal appearance, PERRL, EOMI. Absent: scleral icterus, conjunctival injection, periorbital swelling ENT exam: Present: normal exam, normal oropharynx, mucous membranes moist Neck exam: Present: normal inspection, full ROM. Absent: tenderness, meningismus, lymphadenopathy Respiratory exam: Present: wheezes. Absent: normal lung sounds bilaterally, respiratory distress, rales, rhonchi, stridor Cardiovascular Exam: Present: regular rate, normal rhythm, normal heart sounds. Absent: systolic murmur, diastolic murmur, rubs, gallop, clicks Course Vital Signs 07/30/21 07/30/21 10:12 11:27 Temperature 98.1 F Pulse Rate 84 74 Respiratory 18 Rate Blood Pressure 153/79 O2 Sat by Pulse 98 Oximetry Chest Pain MDM - MDM 46-year-old presented for asthma. Patient feels improved after DuoNeb treatment x-rays unremarkable patient will be given steroids, inhaler. Disposition Clinical Impression: Asthma exacerbation Disposition: HOME SELF-CARE Condition: Stable Instructions (If sedation given, give patient instructions): Asthma (ED) Additional Instructions: Please return to the Emergency Department if symptoms worsen or any other concerns. Prescriptions: predniSONE 50 mg PO DAILY #5 tab Albuterol Sulfate [Proair Hfa] 1 - 2 puff INHALATION Q4HR PRN #8.5 gm PRN Reason: difficulty in breathing Is patient prescribed a controlled substance at d/c from ED?: No Referrals: Domenic Treviño MD [Primary Care Provider] - 1-2 days Time of Disposition: 11:34
[2021-07-30 11:56] VITALS: BP 127/88; PULSE 78; TEMP 98.2
== END 2021-07-30 11:56 | disposition home or self-care (01) ==
LOC: EC 10:09
DX: J45.901 Unspecified asthma with (acute) exacerbation (principal); F17.200 Nicotine dependence, unspecified, uncomplicated
CPT/HCPCS: 71046; 94640; 99284

== ENCOUNTER 2021-09-14 08:55 | Emergency (ER) | payer OTHER ==
[2021-09-14 09:03] VITALS: BP 140/77; TEMP 98.4
[2021-09-14] MEDS ORDERED: predniSONE 50 MG TAB PO STA (09:19)
[2021-09-14] MEDS ORDERED: IPRATROPIUM-ALBUTEROL 3 ML NEB INHALATION STA ×2 (09:19→10:16)
--- NOTE | 2021-09-14 09:21 | ED ---
General Adult HPI - General Chief complaint: Shortness of Breath Stated complaint: Asthma Time Seen by Provider: 09/14/21 09:04 Source: patient, RN notes reviewed Mode of arrival: ambulatory Limitations: no limitations - History of Present Illness Initial comments: Patient is a pleasant 46-year-old male presenting to the emergency department with cough and dyspnea. Onset of symptoms was just a couple days ago. Symptoms are similar to patient's previous asthma problems. No fever. Cough has occasional clear sputum. No chest pain. No leg pain or leg swelling. - Related Data Previous Rx's Medication Instructions Recorded Albuterol Inhaler [Ventolin Hfa 1 - 2 puff INHALATION Q6HR PRN #1 11/10/16 Inhaler] inhaler predniSONE 60 mg PO DAILY #30 tab 11/10/16 Albuterol Inhaler [Ventolin Hfa 2 puff INHALATION ONCE PRN 30 Days 08/26/20 Inhaler] #1 puff Albuterol Nebulized [Ventolin 2.5 mg INHALATION Q4H PRN #25 nebu 08/26/20 Nebulized] predniSONE 50 mg PO DAILY #5 tab 08/26/20 HYDROcodone/APAP 5-325MG [[place] 1 tab PO Q6HR PRN 3 Days #6 tab 10/30/20 5-325] predniSONE 50 mg PO DAILY #4 tab 10/30/20 predniSONE 50 mg PO DAILY #5 tab 12/13/20 Albuterol Sulfate [Proair Hfa] 1 - 2 puff INHALATION Q4HR PRN 07/30/21 #8.5 gm predniSONE 50 mg PO DAILY #5 tab 07/30/21 Albuterol Inhaler [Ventolin Hfa 2 puff INHALATION Q4HR PRN #1 each 09/14/21 Inhaler] predniSONE [Deltasone] 20 mg PO BID #8 tab 09/14/21 Allergies Allergy/AdvReac Type Severity Reaction Status Date / Time No Known Allergies Allergy Verified 09/14/21 09:03 Review of Systems ROS Statement: Those systems with pertinent positive or pertinent negative responses have been documented in the HPI. ROS Other: All systems not noted in ROS Statement are negative. Constitutional: Denies: fever, chills Eyes: Denies: eye pain ENT: Denies: ear pain Respiratory: Reports: as per HPI, cough, dyspnea, wheezes Cardiovascular: Denies: chest pain Endocrine: Denies: fatigue Gastrointestinal: Denies: abdominal pain Genitourinary: Denies: dysuria Musculoskeletal: Denies: back pain Skin: Denies: rash Neurological: Denies: weakness Past Medical History Past Medical History: Asthma History of Any Multi-Drug Resistant Organisms: None Reported Past Surgical History: No Surgical Hx Reported Past Psychological History: No Psychological Hx Reported Smoking Status: Current every day smoker Past Alcohol Use History: None Reported Past Drug Use History: Marijuana General Exam Limitations: no limitations General appearance: alert, in no apparent distress Head exam: Present: normocephalic Eye exam: Present: normal appearance Neck exam: Present: normal inspection Respiratory exam: Present: wheezes Cardiovascular Exam: Present: regular rate, normal rhythm GI/Abdominal exam: Present: soft. Absent: tenderness Extremities exam: Present: normal inspection. Absent: pedal edema, calf tenderness Neurological exam: Present: alert Psychiatric exam: Present: normal affect, normal mood Skin exam: Present: normal color Course Vital Signs 09/14/21 09/14/21 09/14/21 09:01 09:46 09:49 Temperature 98.4 F Pulse Rate 104 H 100 Respiratory 20 16 Rate Blood Pressure 140/77 O2 Sat by Pulse 95 Oximetry 09/14/21 10:00 Temperature Pulse Rate 100 Respiratory Rate Blood Pressure O2 Sat by Pulse Oximetry Medical Decision Making - Medical Decision Making Patient reevaluated and feeling better. Patient still has some wheezing. Patient does request discharge however is receptive to repeat nebulizer prior to discharge. - Radiology Data Radiology results: image reviewed (Chest x-ray shows no acute process) Disposition Clinical Impression: Asthma with acute exacerbation Disposition: HOME SELF-CARE Condition: Stable Instructions (If sedation given, give patient instructions): Asthma (ED) Additional Instructions: Prescriptions have been sent to pharmacy. Please follow-up with primary care physician in the next day or 2 for recheck. Return for fever, difficulty breathing, worsening or changing symptoms or other concerns. Prescriptions: predniSONE [Deltasone] 20 mg PO BID #8 tab Albuterol Inhaler [Ventolin Hfa Inhaler] 2 puff INHALATION Q4HR PRN #1 each PRN Reason: Dyspnea Is patient prescribed a controlled substance at d/c from ED?: No Referrals: Domenic Treviño MD [Primary Care Provider] - 1-2 days Time of Disposition: 10:18
--- NOTE | 2021-09-14 09:48 | XR ---
EXAMINATION TYPE: XR chest 2V DATE OF EXAM: 09/14/2021 COMPARISON: Chest x-ray July 30, 2021 HISTORY: Dyspnea. TECHNIQUE: Frontal and lateral views of the chest are obtained. FINDINGS: There is no suspicious focal air space opacity, pleural effusion, or pneumothorax seen. T he cardiac silhouette size is stable and within normal limits. The osseous structures are intact. IMPRESSION: No acute process. No significant change from prior.
[2021-09-14 09:54] VITALS: RESP 16
[2021-09-14 10:57] VITALS: PULSE 92
== END 2021-09-14 11:07 | disposition home or self-care (01) ==
LOC: EC 08:55
DX: J45.901 Unspecified asthma with (acute) exacerbation (principal); F17.200 Nicotine dependence, unspecified, uncomplicated; F12.90 Cannabis use, unspecified, uncomplicated
CPT/HCPCS: 94640 ×2; 71046; 99284; J7512